=== PATIENT | male | born 1980 | race American Indian/Alaskan Native ===

== ENCOUNTER 2020-10-27 21:11 | Emergency (ER) | payer SELFPAY ==
[2020-10-28 02:31] VITALS: BP 141/75
--- NOTE | 2020-10-28 02:35 | Emergency Department Report ---
ED Laceration HPI - HPI Chief Complaint: Wound/Laceration Stated Complaint: HEAD INJURY Time Seen by Provider: 10/28/20 02:29 Occurred When: Yesterday Location: Head Severity: mild Tetanus Status: Up to Date Laceration Symptoms: No Foreign Body Sensation, No Numbness, No Weakness, No Pain Other History: 40-year-old -Romanian male presents to the emergency room stated that he hit the top of his head on a metal pipe while at work. Patient reports this happened yesterday about 10 AM. Patient denies being in on any blood thinners. Patient does report he is on vitamins. He denies any loss of consciousness no nausea no vomiting no change of vision no headache. Denies any past medical history currently takes no medications on a daily basis and has no known drug allergies. ED Review of Systems ROS: Stated complaint: HEAD INJURY Other details as noted in HPI Comment: All other systems reviewed and negative ED Past Medical Hx - Past Medical History Previous Medical History?: No - Surgical History Past Surgical History?: No - Social History Smoking Status: Never Smoker Substance Use Type: None - Medications Home Medications: Home Medications Medication Instructions Recorded Confirmed Last Taken Type Hydrocodone Bit/Acetaminophen 1 each PO Q6H PRN #20 tablet 03/21/13 Unknown Rx [Lortab 10-500 mg] Sulfamethoxazole/Trimethoprim 1 each PO BID #20 tablet 03/21/13 Unknown Rx [Bactrim DS] Laceration Physical Exam - Exam General: Vital signs noted. No distress. Alert and acting appropriately. Wound Length (cm): 2 Laceration Location: Head Laceration Exam: Yes Normal Distal CMS, No Foreign Body, No Exposed Tendon, Vessel, or Nerve, No Tendon Injury - Laceration /Wound Repair Head Wound Location: head Wound Length (cm): 2 Wound's Depth, Shape: superficial Wound Explored: no foreign body removed Irrigated w/ Saline (ccs): 30 Betadine Prep?: Yes Wound Repaired With: Steri-strips, Dermabond Sterile Dressing Applied?: Yes ED Medical Decision Making - Medical Decision Making 40-year-old -Romanian male presents to the emergency room stated that he hit the top of his head on a metal pipe while at work. Patient reports this happened yesterday about 10 AM. Patient denies being in on any blood thinners. Patient does report he is on vitamins. He denies any loss of consciousness no nausea no vomiting no change of vision no headache. Denies any past medical history currently takes no medications on a daily basis and has no known drug allergies. Critical care attestation.: If time is entered above; I have spent that time in minutes in the direct care of this critically ill patient, excluding procedure time. ED Disposition Clinical Impression: Laceration of scalp Qualifiers: Encounter type: initial encounter Qualified Code(s): S01.01XA - Laceration without foreign body of scalp, initial encounter Disposition: TO HOME OR SELFCARE Is pt being admited?: No Does the pt Need Aspirin: No Condition: Stable Instructions: Sutures, [place], or Adhesive Wound Closure, [id number] Additional Instructions: Keep clean. Ibuprofen or tylenol. Referrals: PRIMARY CARE, [Primary Care Provider] - 3-5 Days [facility] [Provider Group] - 3-5 Days Forms: Work/School Release Form(ED)
== END 2020-10-28 03:15 | disposition home or self-care (01) ==
LOC: ED 21:11
DX: S01.01XA Laceration without foreign body of scalp, initial encounter (principal); Z79.899 Other long term (current) drug therapy; X58.XXXA Exposure to other specified factors, initial encounter; Y93.89 Activity, other specified; Y92.89 Other specified places as the place of occurrence of the external cause; Y99.8 Other external cause status
CPT/HCPCS: 99282